=== PATIENT | female | born 1985 | race Caucasian/White ===

== ENCOUNTER 2022-03-11 07:12 | Inpatient (IN) | payer BC ==
[2022-03-11] MEDS ORDERED: Bupivacaine 0.25% HCL 30 ML VIAL ONE (08:00)
[2022-03-11] MEDS ORDERED: Acetaminophen 500 MG TAB PO PRN (08:07)
[2022-03-11] MEDS ORDERED: hydrALAZINE 20 MG/ML VIAL SLOW IVP PRN ×2 (08:07→13:54)
[2022-03-11] MEDS ORDERED: Ondansetron PF 4 MG/2 ML Vial IVP PRN ×2 (08:07→12:22)
[2022-03-11] MEDS ORDERED: Lidocaine 1% (PF) 30 ML VIAL SC PRN (08:07)
[2022-03-11] MEDS ORDERED: Promethazine HCl 25 MG/ML VIAL IM PRN ×2 (08:07→12:22)
[2022-03-11] MEDS ORDERED: NS w/ Oxytocin 30 units 500 ML IV SCH ×3 (08:15→14:00)
[2022-03-11] MEDS ORDERED: Lactated Ringer's 1,000 ML IV SCH (08:15)
[2022-03-11 08:44] VITALS: BMI 27.1
[2022-03-11 09:11] LABS: Hemoglobin 14.3 g/dL (12.0-15.5); Mean Corpuscular Hemoglobin 34.1 pg (27.0-33.0); Mean Corpuscular Volume 97.4 fl (81.6-98.3); Mean Platelet Volume 10.8 fl (7.4-10.4); Platelet Count 255 10x3/uL (150-450); Red Blood Cell (RBC) Count 4.19 10x6/uL (3.90-5.03)
[2022-03-11 09:52] LABS: HBSAg Index 0.21 S/CO (0-0.99); Hep B Surf Ag Non-Reactive S/CO (NonReactive)
[2022-03-11 09:55] LABS: Syphilis Antibody Nonreactive (Nonreactive); Syphilis Antibody Index 0.05 S/CO (<1.00 Non-Reactive)
[2022-03-11] MEDS ORDERED: Fentanyl 2 mcg/Bup 0.1% Cadd 100 ML ONE (12:13)
[2022-03-11] MEDS ORDERED: Naloxone HCl 0.4 mg/ml Vial IVP PRN ×2 (12:22)
[2022-03-11] MEDS ORDERED: Acetaminophen 325 MG TAB PO PRN (12:22)
[2022-03-11] MEDS ORDERED: diphenhydrAMINE 50 MG/ML VIAL IVP PRN (12:22)
[2022-03-11] MEDS ORDERED: ePHEDrine Sulfate 50 MG/10 ML VIAL SLOW IVP PRN (12:22)
[2022-03-11] MEDS ORDERED: Moisturizing Cream (Eucerin) 113 GM JAR TOP PRN (12:22)
[2022-03-11] MEDS ORDERED: Lactated Ringer's 500 ML IV PRN (12:22)
[2022-03-11] MEDS ORDERED: Communication Order-Pharmacy FS SCH (12:30)
[2022-03-11] MEDS ORDERED: Fentanyl 2 mcg/Bupivacaine 0.1% Cassette 100 ML EPIDURAL SCH (12:30)
[2022-03-11] MEDS ORDERED: Misoprostol 200 MCG TAB VAG PRN (13:54)
[2022-03-11] MEDS ORDERED: Lanolin Ointment 7 GM TUBE TOP PRN (13:54)
[2022-03-11] MEDS ORDERED: Milk Of Magnesia 30 ML UDCUP PO PRN (13:54)
[2022-03-11] MEDS ORDERED: Bisacodyl 10 MG SUPP PR PRN (13:54)
[2022-03-11] MEDS ORDERED: Boostrix 0.5 ML (Tdap) VIAL (>/=7 yrs of age) IM ONE (13:54)
[2022-03-11] MEDS ORDERED: Benzocaine-Menthol 82.5 ML CAN TOP PRN (13:54)
[2022-03-11] MEDS ORDERED: traMADol HCl 50 MG TAB PO PRN (13:54)
[2022-03-11] MEDS ORDERED: Misoprostol 200 MCG TAB ONE (13:55)
[2022-03-11] MEDS ORDERED: Phytonadione Neonatal 1 MG/0.5 ML AMP ONE (14:49)
[2022-03-11] MEDS ORDERED: Erythromycin Base 0.5% Oint 1 GM TUBE ONE (14:50)
[2022-03-11] MEDS: Ibuprofen 800 MG TAB PO SCH (17:51)
[2022-03-11] MEDS: Docusate 100 MG CAP PO SCH ×2 (20:28→21:45)
[2022-03-11] MEDS: Ferrous Sulfate 325 MG TAB PO SCH (20:28)
[2022-03-12] MEDS: Ibuprofen 800 MG TAB PO SCH ×4 (03:34→21:23)
[2022-03-12] MEDS: Ferrous Sulfate 325 MG TAB PO SCH ×2 (08:41→16:33)
[2022-03-12] MEDS: Prenatal Vitamin 1 TAB PO SCH (08:42)
[2022-03-12] MEDS: Docusate 100 MG CAP PO SCH ×2 (08:42→21:23)
[2022-03-13] MEDS: Ibuprofen 800 MG TAB PO SCH (05:44)
[2022-03-13] MEDS: Ferrous Sulfate 325 MG TAB PO SCH (07:21)
[2022-03-13] MEDS: Prenatal Vitamin 1 TAB PO SCH (08:43)
[2022-03-13] MEDS: Docusate 100 MG CAP PO SCH (08:43)
[2022-03-13 08:46] VITALS: BP 137/61; TEMP 98.4
== END 2022-03-13 13:55 | disposition home or self-care (01) | DRG 807 ==
LOC: CSHLD/OP 07:12 → CSHLD 08:11 → CSHPP 17:00
PROVIDERS: ADMIT Obstetrics & Gynecology; ATTEND Obstetrics & Gynecology
PROC: 10E0XZZ Delivery of Products of Conception, External Approach (ICD-10-PCS; principal; 2022-03-11)
PROC: 0KQM0ZZ Repair Perineum Muscle, Open Approach (ICD-10-PCS; 2022-03-11)
DX: O26.893 Other specified pregnancy related conditions, third trimester (principal); Z37.0 Single live birth; O70.1 Second degree perineal laceration during delivery; Z67.21 Type B blood, Rh negative; Z3A.37 37 weeks gestation of pregnancy; Z88.1 Allergy status to other antibiotic agents; Z88.8 Allergy status to other drugs, medicaments and biological substances
CPT/HCPCS: 36415; 51702; 85027; 86780; 86850; 86870; 86900; 86901; 87340; 99285; J2590; J7120; S0020